=== PATIENT | female | born 1990 | race Two or more races ===

== ENCOUNTER 2016-10-19 20:35 | Emergency (ER) | payer MEDICAID, OTHER ==
[2016-10-19] MEDS ORDERED: IOPAMIDOL 370 (76%) 100 ML VIAL IV ONE (20:36)
[2016-10-19] MEDS ORDERED: ONDANSETRON 4 MG/2ML 2 ML VIAL ONE (21:56)
[2016-10-19] MEDS ORDERED: HYDROMORPHONE HCL 1 MG/ML SYRINGE ONE (21:56)
[2016-10-19 22:17] LABS: BASO # 0.1 K/mm3 (0.0-0.2); BASO % 0.5 % (0.2-1.0); EOS # 0.2 (0.0-0.5); EOS % 1.5 % (0.9-2.9); HEMATOCRIT 39.4 % (37.0-47.0); HEMOGLOBIN 13.2 gm/l (12.0-16.0); IMM NEUT% 0.2 % (0-1); LYMPH # 2.9 (1.0-4.8); LYMPH % 28.4 % (15-45); MEAN CELL VOLUME 83.5 fl (81.0-99.0); MEAN CORPUSCULAR HGB CONC 33.5 g/dl (33.0-37.0); MEAN PLATELET VOLUME 12.8 fl (7.4-10.4); MONO % 9.8 % (4-12); NEUT % 59.6 % (43-75); PLATELET COUNT 160 K/mm3 (130-400)
[2016-10-19 22:29] LABS: ALB/GLOB RATIO 1.6 (>1.0); ALBUMIN 4.2 gm/dL (3.5-5.7)
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
== END 2016-10-20 00:51 | disposition home or self-care (01) ==
LOC: ED 20:35
DX: S22.20XA Unspecified fracture of sternum, initial encounter for closed fracture (principal); V43.52XA Car driver injured in collision with other type car in traffic accident, initial encounter; Y92.410 Unspecified street and highway as the place of occurrence of the external cause
CPT/HCPCS: 84703; 85025; 80053; 80307; 74177; 72125; 70450; 71260; 96375; 99284 ×2; 96374; 93005; J1170; J2405; Q9967